=== PATIENT | female | born 1950 | race Caucasian/White ===

== ENCOUNTER 2017-02-11 10:25 | Outpatient (CLI) | payer MEDICARE, OTHER ==
[~2017-02-11] VITALS: Ht 160 cm; Wt 95.0 kg
[2017-02-11] MEDS ORDERED: FISH1CAP15 PO (10:43)
[2017-02-11] MEDS ORDERED: CHOL20003 PO (10:43)
[2017-02-11] MEDS ORDERED: NAPR-1033 PO (10:43)
[2017-02-11] MEDS ORDERED: HALO15OI4 TP (10:43)
[2017-02-11] MEDS ORDERED: GLUC-144 PO (10:43)
[2017-02-11] MEDS ORDERED: CALC300T4 PO (10:43)
[2017-02-11] MEDS ORDERED: LISI10TA2 PO (10:43)
[2017-02-11] MEDS ORDERED: ASPI-999 PO (10:43)
[2017-02-11] MEDS ORDERED: ESTR0.5T3 PO (10:43)
[2017-02-11 10:50] VITALS: BP 140/77
== END 2017-02-11 11:46 | disposition home or self-care (01) ==
LOC: PREOP 10:25
PROVIDERS: ATTEND Podiatrist Foot & Ankle Surgery
DX: Z01.818 Encounter for other preprocedural examination (principal); M20.41 Other hammer toe(s) (acquired), right foot
CPT/HCPCS: 87081

== ENCOUNTER 2017-02-24 06:05 | Day surgery (SDC) | payer MEDICARE, OTHER ==
[~2017-02-24] VITALS: Ht 160 cm; Wt 95.0 kg
[~2017-02-24 06:05] MED LIST: ASPI-999 PO; CALC300T4 PO; CHOL20003 PO; ESTR0.5T3 PO; FISH1CAP15 PO; GLUC-144 PO; HALO15OI4 TP; LISI10TA2 PO; NAPR-1033 PO
[2017-02-24] MEDS ORDERED: NS (IVPB) 50 ML ONE (06:24)
[2017-02-24] MEDS ORDERED: CLINDAMYCIN 600 MG/4ML (CLEOCIN) VIAL ONE (06:24)
[2017-02-24] MEDS: LACTATED RINGERS 1,000 ML IV PRN ×2 (06:30→08:46)
[2017-02-24] MEDS ORDERED: FAMOTIDINE 20MG/2ML IV (PEPCID) IV ONE (07:00)
[2017-02-24] MEDS ORDERED: CLINDAMYCIN 600 MG/NS 50 ML IVPB IV ONE ×2 (07:00)
[2017-02-24] MEDS ORDERED: ONDANSETRON 4 MG/2 ML (SDV) Z0FRAN IV ONE (07:00)
[2017-02-24] MEDS ORDERED: fentaNYL INJECTION 100 MCG/2 ML AMP ONE (07:04)
[2017-02-24] MEDS ORDERED: MIDAZOLAM 2 MG/2 ML (VERSED) VIAL ONE (07:05)
[2017-02-24] MEDS ORDERED: ONDANSETRON 4 MG/2 ML (SDV) Z0FRAN ONE (07:06)
[2017-02-24] MEDS ORDERED: proPOfol 200 MG/20 ML (DIPRIVAN) VIAL IV ONE (07:06)
[2017-02-24] MEDS ORDERED: DEXAMETHASONE 10 MG/ML (DECADRON) 1 ML VIAL ONE (07:11)
[2017-02-24] MEDS ORDERED: LIDOCAINE 1% INJ 20 ML (XYLOCAINE) VIAL ONE (07:11)
[2017-02-24] MEDS ORDERED: BUPIVACAINE 0.5% 30 ML (SENSORCAINE) VIAL ONE (07:11)
[2017-02-24 07:18] VITALS: BP 135/79
--- NOTE | 2017-02-24 07:41 | Progress Note-Pre Operative ---
Pre-Operative Progress Note H&P Reviewed The H&P was reviewed, patient examined and no changes noted. Date Seen by Provider: Feb 24, 2017 Time Seen by Provider: 07:40 Date H&P Reviewed: Feb 24, 2017 Time H&P Reviewed: 07:40 Pre-Operative Diagnosis: Hammertoes 2, 3, 4, hypertrophic 2nd metatarsal, right foot LAMONT HANLEY DPM Feb 24, 2017 7:41 am
[2017-02-24] MEDS ORDERED: SEVOFLURANE (ULTANE) 15 ML INHAL SOLN ONE ×2 (09:03→09:25)
--- NOTE | 2017-02-24 09:42 | Progress Note-Post Operative ---
Post-Operative Progess Note Surgeon (s)/Apple Picker (s) Surgeon LAMONT HANLEY DPM Apple Picker: none Pre-Operative Diagnosis Hammertoes 2, 3, 4, hypertrophic 2nd metatarsal, right foot Post-Operative Diagnosis Same plus hypertrophic 3rd and 4th metatarsals, right Procedure & Operative Findings Date of Procedure 02/24/17 Procedure Performed/Findings Reduction of Hammertoes 2, 3, 4, right foot 2nd, 3rd, 4th metatarsal osteotomies, right foot Anesthesia Type general Estimated Blood Loss Estimated blood loss (mL): Minimal Specimens/Packing Specimens Removed none Packing: none LAMONT HANLEY DPM Feb 24, 2017 9:42 am
[2017-02-24] MEDS ORDERED: LACTATED RINGERS 1,000 ML IV SCH (09:43)
[2017-02-24] MEDS ORDERED: morphine INJ 10 MG/ML 1ML (SYR OR VIAL) IVP PRN (09:45)
[2017-02-24] MEDS ORDERED: ONDANSETRON 4 MG/2 ML (SDV) Z0FRAN IVP PRN (09:45)
[2017-02-24] MEDS ORDERED: HYDROcodone/APAP 5 MG/325 MG (LORTAB) TAB PO PRN (09:45)
[2017-02-24] MEDS ORDERED: HYDR-3812 PO (09:46)
[2017-02-24] MEDS ORDERED: CLIN150C2 PO (09:46)
[2017-02-24 10:35] VITALS: BP 135/79
--- NOTE | 2017-02-24 10:48 | OPERATIVE REPORT ---
DATE OF SERVICE: 02/24/2017 SURGEON: Dr. Kim Hanley DPM. PREOPERATIVE DIAGNOSES: 1. Hammer digit syndrome, right second, third, and fourth digits. 2. Hypertrophic second metatarsal, right foot. POSTOPERATIVE DIAGNOSES: 1. Hammer digit syndrome, right second, third, and fourth digits. 2. Hypertrophic second metatarsal, right foot. 3. Hypertrophic third and fourth metatarsal. PROCEDURE: 1. Reduction of hammertoe, second, third, and fourth digits, right foot with K-wire fixation. 2. Second metatarsal osteotomy, right foot. 3. Third metatarsal osteotomy, right foot. 4. Fourth metatarsal osteotomy, right foot. WOUND CARE: Clean. ANESTHESIA: General. HEMOSTASIS: Pneumatic thigh tourniquet at 250 mmHg. INDICATION: This 66-year-old female presents complaining of a painful right foot. Conservative therapy is met with unsatisfactory results, and the patient is agreeable to surgical intervention after risks and complications were discussed at length. No guarantees were extended to the patient, and she is willing to proceed. DESCRIPTION OF PROCEDURE: The patient was brought back to the operating table and placed in a secure supine position. A general anesthetic was then induced. Appropriate timeout was performed. Pneumatic thigh tourniquet was placed on the right lower extremity overall several days with padding. The right foot was then prepped and draped in the normal sterile manner. The right foot was then prepped and draped in the normal sterile manner. The right foot was then elevated and allowed to exsanguinate, after which the tourniquet was inflated to 250 mmHg. Attention was then directed to the dorsal aspect of the right second ray where a 4 cm longitudinal linear incision was created with the incision from the surgical neck of the second metatarsal to the distal interphalangeal joint of the second toe. The incision went deep into the same plane with great care to identify and retract all vital neurovascular structures. Only necessary blood vessels were cauterized as encountered. The extensor tendon was incised longitudinally for a Z slide lengthening procedure. The extensor tendon was reflected proximally and distally. Next, the extensor campbell was released overlying the metatarsal phalangeal joint and a dorsal capsulorrhaphy was performed to the metatarsal phalangeal joint. The medial collateral ligament was released. The second, third and fourth digits were medially deviated. Releasing the medial collateral ligament allowed for a better alignment of the right second digit. Next, a Dmitry-type osteotomy was then performed. The capital fragment was translocated proximally and medially and it was fixated in its correct position utilizing a 2.0 snap-off screw of 12 mm of length. Excellent bony apposition fixation was appreciated at this time. The excess bone to the second metatarsal was reduced with a rongeur. The wound was flushed with copious amounts of normal saline. Attention was then directed to the dorsal aspect of the right third and fourth metatarsal phalangeal joints where a similar procedure was performed to each of these areas. The 3 cm longitudinal incision was carried out overlying the metatarsophalangeal joint. Next, blunt dissection was carried out to the medial aspect of the extensor tendon where a sharp incision was created longitudinally. This exposed with hypertrophic head of the third and the fourth metatarsals. The metatarsals had a Dmitry-type osteotomy performed to the third and fourth rays allowing the capital fragment to translocate proximally and medially and was fixated in its corrected position utilizing a 2.0 snap-off screw of 12 mm of length, again to the third and fourth metatarsal heads. The head of the third and fourth metatarsal was further contoured and smooth with a rongeur. The wounds were flushed with copious amounts of normal saline. Next, the medial collateral ligament to the third and fourth metatarsophalangeal joint was released with a [place] blade. This improved the alignment of the third digit and fourth digit from its medial deviation. Next, the hammer toe contracture was reduced to the third and fourth rays with 0.054 K-wire driven from distal to proximal across the phalanx and into the metatarsal head area securing the digits in a lateral deviated orientation. The K-wires were cut and a protected ball placed over the end of the wire. Attention was then directed to the second digit of the right foot where an arthrodesis was performed to the proximal interphalangeal joint. The head was fashioned into a peg with a power sagittal saw and power bur and a bur was utilized to create a hole in the base of the middle phalanx for the peg in hole type arthrodesis. A 0.054 K-wire smooth was utilized for fixation of this arthrodesis. The K-wire that was at the end of the toe was cut and a protected ball placed over the end of the wire. Excellent alignment was noted to the digits at this point. The wounds were flushed with copious amounts of normal saline and closure was performed in layers. Deep closure was performed with 3-0 Vicryl, superficial with 4-0 Vicryl and skin closed with 4-0 Prolene and a horizontal mattress type stitch. Postoperative injection consisted of 20 mL of 0.5% Marcaine injected in a local infusion to the surgical sites. Postoperative dressing consistent of Betadine-soaked adaptic, sterile 4 x 4, sterile Kerlix, all secured with a Coban wrap. The patient tolerated the anesthesia procedure well and was transported from the operating room to the recovery area with vital signs stable and vascular status intact to all digits of the right foot. She was given a prescription for Cleocin and hydrocodone. She is to followup in my office in 10 days period of time or sooner if necessary. Job ID: [id number] DocumentID: [id number] Dictated Date: 02/24/2017 09:56:01 [employer]ocomotive Engineer [employer] Date: 02/24/2017 10:48:26 Dictated By: KIM HANLEY DPM
[2017-02-24 11:05] VITALS: BP 140/70
[2017-02-24 11:35] VITALS: BP 126/59
--- NOTE | 2017-02-24 13:02 | Physical Therapy Ortho Eval ---
PT Orthopedic Evaluation Type of Surgery Hammer toe right repair Prior Level of Function Current Living Status: Alone Locomotion (Upon Admit): Independent Established Durable Medical Eq: Front Wheeled Walker, Toilet Riser Pt is going to stay with her brother for a few weeks. Subjective Subjective Agreeable to PT. Entry Into Home: Ramp Steps Accessories: Ramped Entrance Motor Control Motor Control: Motor Control WNL ROM ROM: WFL Strength Strength: WFL Transfer Transfers (B, C, W/C) (FIM): 5 (mod indep post treatment) Gait Gait Assistive Device: FWW Right Lower Extremity: Right Weight Bearing Status RLE: Partial Weight Bearing (heel walking only) Gait (FIM): 5 (mod indep post treatment) Distance (FIM): 3=150 ft Summary/Comments instruction on heel walk gait pattern with no weight bearing on forefoot. Pt able to demonstrate correctly. Treatment Rendered Treatment: Gait Train Assessment/Goals Goal Time Frame: 1 Visit Safe Ambulation: Yes Plan Treatment Plan: Discharge Safe with gait and transfers . PT/Family Agrees to Plan: Yes Time Time In: 1220 Time Out: 1240 Total Billed Treatment Time: 20 Billed Treatment Time visit EVL 20 Yes PT/OT Therapy GCodes Therapy Functional Limitation: Physical Therapy Test(s)/Tool used to determine: Level of Assistance Scale Functional Limitation-Current Charge Code: MOBCUR Modifier: CJ Functional Limitation-Goal Charge Code: MOBGOAL Modifier: CI Functional Limitation-D/C Charge Codes: MOBDC Modifier: CI COLEMAN BROWN PT Feb 24, 2017 13:02
--- NOTE | 2017-02-24 14:24 | Diagnostic Imaging Report ---
Two views of the right foot. INDICATION: Reduction of hammertoe. FINDINGS: Postoperative baseline study demonstrating external fixation and joint fusion with K wires noted across the interphalangeal joints of the second toe and the interphalangeal joints and metatarsophalangeal joints of the third and fourth toes. There are osteotomies noted along the heads of the second, third, and fourth metatarsals with internal fixating screws. There is good alignment seen. There are calcaneal spurs noted. IMPRESSION: Joint fusion with K wires and osteotomies along the metatarsal heads of the second, third, and fourth toes. Dictated by: Dictated on workstation # [id number]
== END 2017-02-24 12:50 | disposition home or self-care (01) ==
LOC: SDC 06:05
PROVIDERS: ATTEND Podiatrist Foot & Ankle Surgery
DX: M20.41 Other hammer toe(s) (acquired), right foot (principal); M89.371 Hypertrophy of bone, right ankle and foot; I10 Essential (primary) hypertension; E78.00 Pure hypercholesterolemia, unspecified; E66.9 Obesity, unspecified; Z68.37 Body mass index [BMI] 37.0-37.9, adult
CPT/HCPCS: 73620

== ENCOUNTER → 2020-10-26 | Outpatient (CLI) | payer MEDICARE, OTHER ==
[~2020-10-26] MED LIST changes: +ACHD5005 PO; +CLIN150C2 PO; -LISI10TA2 PO; +LISI10TA25 PO
--- NOTE | 2020-10-26 16:01 | Diagnostic Imaging Report ---
INDICATION: Right knee pain. EXAMINATION: AP, oblique and lateral views of the right knee were obtained. No fracture or acute bony abnormality is seen. There is patellofemoral joint space narrowing and osteophyte formation of moderate severity. There is prominent medial joint space narrowing with osteophyte formation. Lateral compartment appears preserved. IMPRESSION: There are degenerative findings of the right knee most prominent in the medial and patellofemoral compartments. No acute fracture. Dictated by: Dictated on workstation # [id number]
== END ==
LOC: RAD FS 13:11
PROVIDERS: ATTEND Nurse Practitioner
DX: M17.11 Unilateral primary osteoarthritis, right knee (principal)
CPT/HCPCS: 73562